=== PATIENT | male | born 1955 | race Caucasian/White ===

== ENCOUNTER → 2021-09-30 15:47 | Outpatient (CLI) | payer MEDICARE, BC, SELFPAY ==
--- NOTE | 2021-09-30 15:55 | DI.RAD.S_ITS ---
PROCEDURE: XR CERVICAL SPINE 4V OR 5V INDICATIONS: NECK PAIN TECHNIQUE: 5 views of the cervical spine were acquired. COMPARISON: None. FINDINGS: Bones: No fractures or dislocations to the T1 level. No suspicious bony lesions. Loss of lordosis which could be related to muscle spasm, rigidity or simply positional. Multilevel disc degeneration, severe at the C5-C6 and C6-C7 levels. Moderate multilevel mid and lower cervical spine facet joint arthropathy and uncovertebral hypertrophy. Oblique views demonstrate mild to moderate multilevel mid and lower cervical spine bilateral neural foraminal narrowin. Soft tissues: Prevertebral soft tissues are normal in thickness. IMPRESSION: Loss of lordosis and multilevel spondylosis. Dictated by: Fabian Mejia [facility] Interpreted: Boogie Gómez MD on 09/30/2021 at 16:23 Transcribed by: VADIM on 09/30/2021 at 16:25 Approved by: Boogie Gómez M.D. on 09/30/2021 at 17:01
--- NOTE | 2021-09-30 15:55 | DI.RAD.S_ITS ---
PROCEDURE: XR LUMBAR SPINE MIN 4V INDICATIONS: BACK PAIN TECHNIQUE: 5 views of the lumbar spine acquired, including flexion and extension views. COMPARISON: None. FINDINGS: Bones: 5 nonrib-bearing vertebrae are present. There is normal bony alignment. No vertebral body compression fractures. No suspicious bony lesions. Multilevel disc degeneration, most notably and moderate to severe at the L5-S1 level. Mild L4-L5 and L5-S1 facet joint arthropathy Soft tissues: Overlying bowel gas pattern is normal. No suspicious soft tissue calcifications. Oblique views demonstrate no intra-articular is pars defects bilaterally. IMPRESSION: Multilevel spondylosis, most notably with moderate to severe disc degeneration at the L5-S1 level. Dictated by: Fabian Mejia [facility] Interpreted: Boogie Gómez MD on 09/30/2021 at 16:35 Transcribed by: VADIM on 09/30/2021 at 16:36 Approved by: Boogie Gómez M.D. on 09/30/2021 at 17:01
== END ==
PROVIDERS: Referring Provider Physical Medicine & Rehabilitation; Visit Provider Physical Medicine & Rehabilitation
DX: M47.816 Spondylosis without myelopathy or radiculopathy, lumbar region (principal); M47.812 Spondylosis without myelopathy or radiculopathy, cervical region; M47.817 Spondylosis without myelopathy or radiculopathy, lumbosacral region; M51.37 Other intervertebral disc degeneration, lumbosacral region
CPT/HCPCS: 72050; 72110

== ENCOUNTER → 2023-07-26 07:20 | Outpatient (CLI) | payer MEDICARE, BC, SELFPAY ==
--- NOTE | 2023-07-26 07:25 | DI.RAD.S_ITS ---
PROCEDURE: XR LUMBAR SPINE MIN 4V INDICATIONS: BACK PAIN TECHNIQUE: 5 views of the lumbar spine were acquired, including bilateral oblique views. COMPARISON: [facility], CR, XR LUMBAR SPINE MIN 4V, 09/30/2021, 15:58. FINDINGS: Bones: 5 nonrib-bearing vertebrae are present. There is normal bony alignment. No vertebral body compression fractures. No suspicious bony lesions. Degenerative disc disease, [id number] at L5-S1, moderate at L4-L5 and mild at L2-L3. [id number] facet arthropathy at L4-L5 and L5-S1. Soft tissues: Overlying bowel gas pattern is normal. No suspicious soft tissue calcifications. Oblique images: No pars defects. IMPRESSION: Ezqgfhfc-[id number] degenerative disc and facet disease in lumbar spine. Dictated by: Amilcar Bermudez M.D. on 07/26/2023 at 8:16 Approved by: Amilcar Bermudez M.D. on 07/26/2023 at 8:18
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
== END ==
PROVIDERS: Referring Provider Physical Medicine & Rehabilitation; Visit Provider Physical Medicine & Rehabilitation
DX: S43.111A Subluxation of right acromioclavicular joint, initial encounter (principal); M19.011 Primary osteoarthritis, right shoulder; M75.41 Impingement syndrome of right shoulder; R07.81 Pleurodynia; M47.812 Spondylosis without myelopathy or radiculopathy, cervical region; M50.322 Other cervical disc degeneration at C5-C6 level; M48.02 Spinal stenosis, cervical region; M51.36 Other intervertebral disc degeneration, lumbar region; M51.37 Other intervertebral disc degeneration, lumbosacral region; M47.816 Spondylosis without myelopathy or radiculopathy, lumbar region; M47.817 Spondylosis without myelopathy or radiculopathy, lumbosacral region; M54.9 Dorsalgia, unspecified
CPT/HCPCS: 71111; 72050; 72110; 73030

== ENCOUNTER → 2024-07-08 17:05 | Outpatient (CLI) | payer MEDICARE, BC, SELFPAY | LOC: LAB 17:06 | PROVIDERS: Referring Provider Family Medicine; Visit Provider Family Medicine | DX: Z12.11 Encounter for screening for malignant neoplasm of colon (principal) | CPT/HCPCS: 82274 ==